=== PATIENT | male | born 1985 | race Caucasian/White ===

== ENCOUNTER 2021-01-03 07:09 | Emergency (ER) | payer OTHER, SELFPAY ==
[2021-01-03] MEDS ORDERED: Fentanyl 100 MCG/2 ML VIAL ONE ×2 (07:23→08:23)
[2021-01-03] MEDS ORDERED: Glycopyrrolate 0.4 MG/ 2 ML VIAL ONE (07:24)
[2021-01-03] MEDS ORDERED: Ketorolac Tromethamine 30 MG/ML VIAL ONE (07:24)
[2021-01-03 07:31] LABS: %Basophils 1.1 % (0.0-1.0); %Eosinophils 3.5 % (0.0-10.0); %Lymphocytes 22.3 % (21.0-51.0); %Neutrophils 67.1 % (42.0-75.0); Hemoglobin 15.1 g/dL (14.0-18.0); Mean Corpuscular HGB CONC 33.5 g/dL (32.0-36.0); Mean Corpuscular Hemoglobin 29.9 pg (27.0-31.0); Mean Corpuscular Volume 89.3 fL (78.0-98.0); Mean Platelet Volume 7.6 fL (7.4-10.4); Platelet Count 237 thou/uL (130-400); RBC Distribution Width 11.6 % (11.5-14.5); Red Blood Cell (RBC) Count 5.04 mill/uL (4.70-6.10); White Blood Cell (WBC) Count 13.2 thou/uL (4.8-10.8)
[2021-01-03 07:32] LABS: #Basophils 0.1 thou/uL (0.0-0.2); #Eosinphils 0.5 thou/uL (0.0-0.7); #Lymphocytes 2.9 thou/uL (1.20-3.40); #Monocytes 0.8 thou/uL (0.11-0.59); #Neutrophils 8.8 thou/uL (1.40-6.50)
[2021-01-03 07:33] LABS: Bilirubin Small (Negative); Blood, Urine Large (Negative); Glucose, Urine (Dipstick) Negative (Negative); Ketone, Urine Trace mg/dL (Negative); Leukocyte Negative (Negative); Nitrite Negative (Negative); Protein, Urine (Dipstick) 30 mg/dL (Neg-Trace)
[2021-01-03 07:36] LABS: Clarity Slightly Cloudy (Clear)
[2021-01-03 07:38] LABS: Specific Gravity, Urine 1.029 (1.002-1.036)
[2021-01-03 07:42] LABS: Anion Gap 18 mmol/L (10-20); BUN (Urea Nitrogen) 13 mg/dL (8.9-20.6); Calc. Creatinine Clearance 0 mL/min (70-130); Calcium 9.4 mg/dL (7.8-10.44); Carbon Dioxide 22 mmol/L (22-29); Chloride 102 mmol/L (98-107); Glucose 123 mg/dL (70-105); Potassium 3.3 mmol/L (3.5-5.1); Sodium 139 mmol/L (136-145)
[2021-01-03 07:43] LABS: Squamous Epithelial 0-3 HPF (0-3); WBC/HPF 0-3 HPF (0-3)
[2021-01-03 07:44] LABS: Bacteria/HPF Rare-Few HPF (None Seen); Mucous/LPF Rare LPF (<2+)
[2021-01-03] MEDS ORDERED: Dicyclomine 20 MG TAB ONE (08:24)
[2021-01-03] MEDS ORDERED: HYDROcodone/Acetaminophen 10/325 mg Tablet ONE (09:17)
== END 2021-01-03 09:24 | disposition home or self-care (01) ==
LOC: BURERS 07:09
DX: N13.2 Hydronephrosis with renal and ureteral calculous obstruction (principal)
CPT/HCPCS: 74176; 80048; 81003; 81015; 85025; 96374; 96375; 96376; J1885; J3010

== ENCOUNTER 2021-05-12 10:42 | Emergency (ER) | payer OTHER, SELFPAY | END 2021-05-12 11:10 | disposition home or self-care (01) | LOC: BURERS 10:42 | DX: F41.9 Anxiety disorder, unspecified (principal); F17.290 Nicotine dependence, other tobacco product, uncomplicated | CPT/HCPCS: 93005 ==